=== PATIENT | female | born 1970 | race African-American/Black ===

== ENCOUNTER 2022-09-22 15:09 | Emergency (ER) | payer MEDICARE ==
[~2022-09-22] VITALS: Ht 162.6 cm; Wt 90.0 kg
--- NOTE | 2022-09-22 15:53 | NUR ---
seizure pads applied for precautionary measure
[2022-09-22] MEDS ORDERED: morphine 4 MG/ML inj SYRINge IM ONE (16:20)
[2022-09-22] MEDS ORDERED: fluorescein sod 1mg ophthalmic strip LEFTEYE ONE (16:40)
[2022-09-22] MEDS ORDERED: erythromycin ophthalmic ointment 1gm tube LEFTEYE ONE (17:28)
--- NOTE | 2022-09-22 18:28 | NUR ---
Remaining erythromycin eye ointment given to patient to take home upon discharge.
[2022-09-22 18:38] VITALS: BP 167/109
== END 2022-09-22 18:42 | disposition home or self-care (01) ==
LOC: ER 15:10
DX: S05.02XA Injury of conjunctiva and corneal abrasion without foreign body, left eye, initial encounter (principal); S09.90XA Unspecified injury of head, initial encounter; G40.909 Epilepsy, unspecified, not intractable, without status epilepticus; I10 Essential (primary) hypertension; Z88.5 Allergy status to narcotic agent; X58.XXXA Exposure to other specified factors, initial encounter; Y93.89 Activity, other specified; Y92.89 Other specified places as the place of occurrence of the external cause; Y99.8 Other external cause status
CPT/HCPCS: 70450; 96372; 99285; J2270